=== PATIENT | female | born 1960 | race Caucasian/White ===

== ENCOUNTER 2023-02-01 13:47 | Emergency (ER) | payer MEDICARE, OTHER ==
[~2023-02-01] VITALS: Ht 154.9 cm; Wt 96.6 kg
[2023-02-01] MEDS ORDERED: TRAZODONE HCL150 MG PO (14:09)
[2023-02-01] MEDS ORDERED: POTASSIUM CHLO10 ME1 PO (14:09)
[2023-02-01] MEDS ORDERED: ELIQUIS5 MG PO (14:09)
[2023-02-01] MEDS ORDERED: ROSUVASTATIN CA40 MG PO (14:09)
[2023-02-01] MEDS ORDERED: VERAPAMIL HCL360 MG PO (14:09)
[2023-02-01] MEDS ORDERED: HYDROCODON-ACE1 EAC8 PO (14:10)
[2023-02-01] MEDS ORDERED: FUROSEMIDE20 MG PO (14:10)
[2023-02-01] MEDS ORDERED: PANTOPRAZOLE SO40 MG PO (14:10)
[2023-02-01] MEDS ORDERED: OXYCODONE HCL5 MG PO (14:10)
[2023-02-01] MEDS ORDERED: ONDANSETRON ODT8 MG PO (15:14)
== END 2023-02-01 15:21 | disposition home or self-care (01) ==
LOC: ED 13:47
DX: S06.0X0A Concussion without loss of consciousness, initial encounter (principal); I50.9 Heart failure, unspecified; N18.30 Chronic kidney disease, stage 3 unspecified; J45.909 Unspecified asthma, uncomplicated; Z88.8 Allergy status to other drugs, medicaments and biological substances; Y04.8XXA Assault by other bodily force, initial encounter; Z79.899 Other long term (current) drug therapy
CPT/HCPCS: 70450; 99284-25; A9270